=== PATIENT | female | born 1995 | race Caucasian/White ===

== ENCOUNTER 2016-11-12 10:02 | Emergency (ER) | payer BC, OTHER ==
[~2016-11-12] VITALS: Ht 157.5 cm; Wt 53.0 kg
[2016-11-12 10:04] VITALS: TEMP 36.4; Ht 157.5 cm; Wt 53.0 kg
[2016-11-12] MEDS ORDERED: LORAZEPAM 1 MG TAB SL STA (10:27)
[2016-11-12] MEDS ORDERED: AMOX250C3 PO (10:57)
[2016-11-12] MEDS ORDERED: ATIVAN 1MG HOMEPACK PO ONE (12:30)
[2016-11-12 12:40] VITALS: BP 136/81; PULSE 94; O2SAT 100
--- NOTE | 2016-11-12 15:50 | EMERGENCY ROOM VISIT NOTE ---
History Report prepared by Samia: Delicia Ricardo Under the Supervision of: Dr. Krishan Garcia M.D. 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 The patient is a student at [employer] and had one final this morning. She does not think that final went very well. The patient experienced a panic attack when she was driving home after the exam. She felt like she was going to experience syncope so she pulled the car over and walked to a friend's house that was near the area. She states that she has one more final tomorrow morning. She states that she is experiencing some nausea and abdominal pain, but she thinks the pain is secondary to gas which is normal for her when she is stressed. She also states that she hasn't been eating or drinking much water recently, but she has been drinking coffee. She states that she has not been sleeping much either due to studying. The patient adds that her calf was sore for no apparent reason yesterday and the patient's friend adds that the patient's right arm was twitching last night also. Pt denies LOC, headache, fevers, chills, diaphoresis , visual changes, neck pain, chest pain, breathing difficulties, vomiting, back pain, melena, hematochezia, urinary symptoms, numbness, weakness, lymphadenopathy, rash, or other complaints.The patient has experienced similar symptoms in the past, but never this severe. The patient states that she is on Vyvanse and Adderall, but otherwise has no regular medications. She states that she was previously on a higher dose of Vyvanse, but she started to experience palpitations so the dose was lowered. The patient states that she has never been hospitalized for similar symptoms in the past. She adds that she experienced mood issues and depression when she was in middle school. She was on Trileptal from middle school until her dwayne or senior but currently she is not on anything for mood issues or depression. The patient denies any suicidal or homicidal ideation. Additionally, the patient was diagnosed with strep throat at the beginning of the week and started on amoxicillin. Source of History: patient, friend Onset: CLAY ARTIST Position: other (global) Quality: other (anxiety) Timing: worsening Associated Symptoms: + abdominal pain, + nausea Note: near syncope, calf soreness, right arm twitching Review of Systems See HPI for pertinent positives and negatives. A total of ten systems were reviewed and were otherwise negative. Past Medical & Surgical Medical Problems: (1) ADHD (attention deficit hyperactivity disorder) Family History No pertinent family history Social History Smoking Status: Current Every Day Smoker Alcohol Use: occasionally Housing Status: lives with roommate Occupation Status: [email or web address] student Current/Historical Medications Scheduled Amoxicillin (Amoxil), 250 MG PO BID Amphetamine-Dextroamphetamine 10MG (Adderall 10MG), 10 MG PO DAILY Control Pills ( Control Pills), 1 TAB PO DAILY Lisdexamfetamine Dimesylate (Vyvanse), 30 MG PO DAILY Allergies Coded Allergies: No Known Allergies (Unverified , 11/12/16) Physical Exam Vital Signs Date Time Temp Pulse Resp B/P Pulse Ox O2 Delivery O2 Flow Rate FiO2 11/12/16 12:40 94 18 136/81 100 11/12/16 10:04 36.4 130 18 144/87 99 Room Air Physical Exam GENERAL: Awake, alert, very anxious appearing, no distress HENT: Normocephalic, atraumatic. TM's normal. Oropharynx unremarkable. EYES: PERRL. EOMI. Normal conjunctiva. Sclera non-icteric. NECK: Supple. No nuchal rigidity. FROM. No JVD or bruit. RESPIRATORY: CTA CARDIAC: RRR. No murmur. ABDOMEN: Soft, non distended. No tenderness to palpation. No rebound or guarding. No masses. MUSCULOSKELETAL: Unremarkable. No edema. No discoloration. Gross motor strength symmetric. NEURO: Cranial nerves 2-12 grossly intact. Normal sensorium. No sensory or motor deficits noted. Speech normal. No pronator drift. SKIN: No rash or jaundice noted. LYMPH: No adenopathy. PSYCH: Very anxious mood. No suicidal ideation. No homicidal ideation. Medical Decision & Procedures Medications Administered Medications (Trade) Dose Ordered Sig/Parminder Route Start Time Stop Time Status Last Admin Dose Admin Lorazepam (Ativan Tab) 1 mg NOW STAT SL 11/12/16 10:27 11/12/16 10:28 DC 11/12/16 10:35 1 MG Lorazepam (Ativan 1MG Home Pack) 1 homepack UD ONCE PO 11/12/16 12:30 11/12/16 12:31 DC 11/12/16 12:41 1 [facility] ED Course 1025: The patient was evaluated in room A7. A complete history and physical exam was performed. 1027: Ordered Ativan Tab 1 mg SL 1111: I reassessed the patient and she is feeling much better. 1215: I reevaluated the patient. She is still doing well. Discussed results and discharge instructions: she verbalized understanding and agreement. The patient is ready for discharge. 1230: Ordered Lorazepam 1 weirsdalepa PO Medical Decision Triage Nursing notes reviewed and agree them. The patient's history was concerning for possible psychiatric disturbance. Differential diagnosis: Etiologies such as adjustment disorder, mood disorder, infection, hypoglycemia, electrolyte abnormalities, cardiac sources, intracerebral event, toxicologic, neurologic, as well as others were entertained. Physical examination: The physical examination was performed as above and was completely benign except for significant anxiety. No emergent medical pathologies were noted. ER treatment provided: Ativan 1 mg On reassessment the patient felt much better. Diagnostic interpretation by me: No diagnostic studies were performed based upon the history and physical examination. The patient presented with acute panic attack after taking her examination. No emergent medical findings were noted on history or physical examination. She was treated with Ativan and felt significantly better. She was apprehensive that the panic attack may recur and I did offer a home pack of Ativan. No prescription was written. The patient plans on going home within the next 48 hours. She will contact her professor regarding her exam tomorrow. The patient has an appointment next week with her outpatient provider Yonis Cline. If she worsens in any way she will come back to the emergency department. The patient felt very comfortable with the plan and was in good condition. By the evaluation outlined above emergent etiologies such as infection, hypoglycemia, electrolyte abnormalities, cardiac sources, intracerebral event, toxicologic, neurologic,as well as others were deemed relatively unlikely. It appears the patient is dealing with a psychiatric disturbance. The patient was informed about the findings as listed above. All questions were answered and she was pleased with the treatment. Return instructions were outlined and the patient was discharged in stable condition. Outpatient prescription management: Ativan home pack The chart was completed utilizing [employer] voice recognition software. Grammatical errors, random word insertions, pronoun errors, and incomplete sentences are an occasional consequence of this system due to software limitations, ambient noise, and hardware issues. Any formal questions or concerns about the content, text, or information contained within the body of this dictation should be directly addressed to the physician for clarification. Impression Primary Impression: Panic attack Scribe Attestation The scribe's documentation has been prepared under my direction and personally reviewed by me in its entirety. I confirm that the note above accurately reflects all work, treatment, procedures, and medical decision making performed by me. Departure Information Dispostion Home / Self-Care Referrals [facility] (PCP) Forms HOME CARE DOCUMENTATION FORM, IMPORTANT VISIT INFORMATION Patient Instructions My [facility] Additional Instructions PSYCHIATRIC INSTRUCTIONS: Ativan 1 mg: Take one 3 times daily as needed for severe anxiety. Do not drive if taking. May cause drowsiness. Do not take if you are at work or doing any activity where being under the influence may be dangerous. Contact your professor today to discuss your exam tomorrow. Continue your current medications. Return to the ER for severe anxiety or depression, thoughts of hurting yourself or others, inability to function, hallucinations, worsening of your condition, or as needed. Follow up with your provider when you return home as discussed.
== END 2016-11-12 12:40 | disposition home or self-care (01) ==
LOC: C.EDB 10:04 → C.EDA 12:40
DX: F41.0 Panic disorder [episodic paroxysmal anxiety] (principal); F90.9 Attention-deficit hyperactivity disorder, unspecified type; F17.200 Nicotine dependence, unspecified, uncomplicated; Z79.899 Other long term (current) drug therapy

== ENCOUNTER 2017-05-12 02:45 | Emergency (ER) | payer BC ==
[~2017-05-12] VITALS: Ht 157.5 cm; Wt 54.9 kg
[~2017-05-12 02:45] MED LIST: AMOX250C3 PO
[2017-05-12 02:48] VITALS: TEMP 36.7; Ht 157.5 cm; Wt 54.9 kg
[2017-05-12] MEDS ORDERED: LIDOCAINE/EPINEPH/TETRACAINE 1 EA SYR EXT STA (03:01)
[2017-05-12] MEDS ORDERED: ACETAMINOPHEN 500 MG TAB PO STA (03:01)
--- NOTE | 2017-05-12 04:04 | EMERGENCY ROOM VISIT NOTE ---
History First contact with patient: 02:56 Chief Complaint: LACERATION/CUT (SUT/DERMABOND) Stated Complaint: BLEEDING FROM LAC ON FACE Nursing Triage Summary: Pt reports she tripped and hit her chin on her bed. Pt has laceration to chin. Denies any LOC. History of Present Illness The patient is a 22 year old female who presents to the Emergency Room with complaints of chin laceration with head injury who tripped over her bed striking her chin. Patient states she's been drinking alcohol. She does not feel overly intoxicated. She describes the pain as throbbing, ranging in severity 6 out of 10 that is worse with palpation and better with rest. Tetanus is current. Patient denies loss of conscious, dental pain, vision problems, neck pain, chest pain, dyspnea, abdominal pain, numbness, tingling, weakness or any other medical complaints. Review of Systems See HPI for pertinent positives & negatives. A total of 10 systems reviewed and were otherwise negative. Past Medical/Surgical History Medical Problems: (1) ADHD (attention deficit hyperactivity disorder) Family History No pertinent family history Social History Smoking Status: Never Smoker Alcohol Use: occasionally Drug Use: none Housing Status: lives with roommate Occupation Status: [employer] student Current/Historical Medications Scheduled Amoxicillin (Amoxil), 250 MG PO BID Amphetamine-Dextroamphetamine 10MG (Adderall 10MG), 10 MG PO DAILY Control Pills ( Control Pills), 1 TAB PO DAILY Lisdexamfetamine Dimesylate (Vyvanse), 30 MG PO DAILY Physical Exam Vital Signs Date Time Temp Pulse Resp B/P (MAP) Pulse Ox O2 Delivery O2 Flow Rate FiO2 05/12/17 02:48 36.7 92 20 147/95 100 Room Air Physical Exam PHYSICAL EXAM: VITALS: Vitals are noted on the nurse's note and reviewed by myself. Vital signs stable. GENERAL: Pleasant female with EtOH odor, in no acute distress, nondiaphoretic, well-developed well-nourished. SKIN: 3 cm right chin laceration with small abrasions around it that is gaping and appears clean The~ skin was without obvious lacerations or abrasions. Capillary reflex less than 2 seconds. HEAD: Normocephalic atraumatic. EARS: External auditory canals clear, tympanic membranes pearly asher without erythema or effusion bilaterally. No hemotympanums. No biswas sign. No mastoid tenderness. EYES: Pupils equal round and reactive to light and accommodation. Conjunctivae without injection, sclerae without icterus. Extraocular movements intact. NOSE: Patent, turbinates without inflammation or discharge. No sinus tenderness. No septal hematoma or bleeding. FACE: Right lateral jaw line facial bone tenderness. Full range of motion of the jaw right-sided tenderness. MOUTH: Mucous membranes moist. Pharynx without erythema or exudate. Uvula midline. Airway patent. Tongue does not deviate. NECK: Supple without nuchal rigidity. Cervical spine is nontender. Full range of motion of the neck without tenderness. No JVD. HEART: Regular rate and rhythm without murmurs gallops or rubs. LUNGS: Clear to auscultation bilaterally without wheezes, rales or rhonchi. No dullness to percussion. No retractions or accessory muscle use. No chest wall tenderness. ABDOMEN: Positive bowel sounds x 4. Normal tympanic percussion. Soft, nontender, without masses or organomegaly. No guarding or rebound tenderness. MUSCULOSKELETAL: No tenderness of the thoracic or lumbar spine. NEURO: Patient was alert and oriented to person place and time. Normal sensation to light and sharp touch. No focal neurological deficits. Medical Decision & Procedures Medications Administered Medications (Trade) Dose Ordered Sig/Parminder Route Start Time Stop Time Status Last Admin Dose Admin Tetracaine/ Epinephrine/ Lidocaine (L.e.t. Gel 4%/ 1:100/0.5%) 1 ea NOW STAT EXT 05/12/17 03:01 05/12/17 03:03 DC 05/12/17 03:08 1 EA Acetaminophen (Tylenol Tab) 1,000 mg NOW STAT PO 05/12/17 03:01 05/12/17 03:03 DC 05/12/17 03:08 1,000 MG Procedure Location: chin Total length: 3cm Complexity: simple Verbal consent was obtained after the risks and benefits were explained, including but not limited to bleeding, scarring, infection, pain, and bone/joint /nerve damage. At this time, the risks of the procedure are less than the risks of NOT performing the procedure. A time out was taken and the correct patient and site identified. The skin was prepped with betadine. The target area was anesthetized with LET. Copious irrigation was performed using NSS. The skin was re-prepped with betadine and a sterile field set. The wound was explored for foreign bodies and none found. Examination revealed no injury to deep structures such as tendons, bone, or significant blood vessels. Debridement was not performed. The wound edges were approximated using 5, 6-0 simple interrupted nylon sutures. Hemostasis and excellent approximation was achieved. Antibacterial ointment and a sterile dressing applied. Detailed wound care instructions and signs and symptoms of infection reviewed with the pt. No complications and the patient tolerated the procedure well. ED Course Prior records/ancillary studies reviewed. Triage Nursing notes reviewed. Additional history obtained from friend The patient's history was concerning for traumatic head injury Differential diagnosis: Etiologies such as concussion, contusion, fracture, subdural hematoma, epidural hematoma, intraparenchymal hemorrhage, as well as other traumatic pathologies were entertained. Physical examination findings: As above. ER treatment provided: P.o. Tylenol On reassessment the patient felt better. Diagnostics interpreted by me: Imaging studies: Head and facial CT negative for bleed or fracture per stat radiology It appears the patient has a head injury and is intoxicated so imaging was ordered. Patient had unremarkable workup as above. She was counseled on head injury signs and symptoms and laceration care. She is advised follow-up with health services in a few days or here in the ER sooner for headache, fevers, confusion, signs of infection, worsening signs or symptoms or as needed. Patient ambulated out of the ER without difficulties. By the evaluation outlined above emergent etiologies such as fracture, subdural hematoma, epidural hematoma, intraparenchymal hemorrhage, as well as others were deemed relatively unlikely. The pt informed about the findings as listed above. All questions were answered and pleased with the treatment. Return instructions were outlined and the patient was discharged in stable condition. Referral: The patient was referred back to their primary care physician/S for follow-up in 2 to 3 days for a recheck of the current condition. Medical Decision as above Head Trauma GCS Score: 15 Medication Reconcilliation Current Medication List: was personally reviewed by me Blood Pressure Screening Patient's blood pressure: Normal blood pressure Impression Primary Impression: Head injury Additional Impressions: Chin laceration Chin abrasion, non-infected Departure Information Dispostion Home / Self-Care Condition GOOD Referrals No Doctor, Assigned (PCP) Patient Instructions My [facility] Additional Instructions Read head injury handout and return for any symptoms. Tylenol 1000 mg as needed for pain (Maximum 3000 mg Tylenol in 24 hr period). Avoid alcohol and contact sports/activities for one week and follow up with family doctor prior to returning to these activities if still symptomatic. Ice and elevate head. If your symptoms persist more than a week then follow up with the concussion clinic. Call [phone]. Return to ER sooner for headache, fevers, confusion, worsening signs or symptoms or as needed. Antibiotic ointment and bandage to the areas until healed. Follow up with family doctor or return for any signs of infection (increasing redness, swelling , drainage, or fever). Keep covered when in sun until fully healed then SPF 50 or higher until scar healed. Laceration care: Keep wound clean and dry. Do not allow any crusting or dried blood to accumulate on sutures. If this occurs, use a 1:1 solution of hydrogen peroxide/ water on a Q-tip to clean the wound. Use an antibiotic ointment for 3-4 days, then let wound dry. Suture removal in 5-7 days. Return sooner for any signs of infection (increasing redness, swelling, drainage). Ice and elevate for swelling and pain. Keep covered when in sun until sutures removed then SPF 50 or higher for one year. Vitamin E oil if desired two weeks after suture removal for reduction of scar. Return to ER sooner for headache, fevers, confusion, signs of infection, worsening signs or symptoms or as needed. Problem Qualifiers Primary Impression: Head injury Encounter type: initial encounter Qualified Codes: S09.90XA - Unspecified injury of head, initial encounter
[2017-05-12 04:23] VITALS: BP 128/82; PULSE 88; O2SAT 99
--- NOTE | 2017-05-12 06:28 | DIAGNOSTIC IMAGING REPORT ---
CT HEAD WITHOUT CONTRAST (CT) CLINICAL HISTORY: Head pain status post trauma COMPARISON STUDY: No previous studies for comparison. TECHNIQUE: Axial CT of the brain is performed from the vertex to the skull base. IV contrast was not administered for this examination. A dose lowering technique was utilized adhering to the principles of ALARA. CT DOSE: 744.02 mGy.cm FINDINGS: No intra or extra-axial mass lesions are visualized. There is no CT evidence of acute cortical infarction. There is no evidence of midline shift. There is no acute hemorrhage. No calvarial fractures are visualized. There is no evidence of pathologic ventricular dilatation. There is no evidence of acute sinusitis IMPRESSION: Normal noncontrast head CT. Electronically signed by: Huber Salazar M.D. 05/12/2017 6:27 AM Dictated Date/Time: 05/12/2017 6:26 AM
--- NOTE | 2017-05-12 06:57 | DIAGNOSTIC IMAGING REPORT ---
MAXILLOFACIAL CT WITHOUT CONTRAST CLINICAL HISTORY: Fall with chin injury. COMPARISON STUDY: None. TECHNIQUE: A maxillofacial CT was performed without IV contrast. Coronal and sagittal reformats were viewed. A dose lowering technique was utilized adhering to the principles of ALARA. FINDINGS: Note is made of soft tissue gas consistent with a laceration overlying the right anterior body of the mandible. No associated mandibular fracture is present. No radiopaque foreign bodies are identified. Alignment of the temporomandibular joints is anatomic. There is no acute facial fracture. Orbital floors are intact. No fracture is identified within the skull base or visualized portions of the upper cervical spine. IMPRESSION: No acute facial fracture. Soft tissue gas consistent with laceration overlying the anterior aspect of the right hemimandible. Electronically signed by: Maximo Dumont M.D. 05/12/2017 6:55 AM Dictated Date/Time: 05/12/2017 6:51 AM
[2017-05-12] MEDS ORDERED: AMPH10TA2 PO (10:57)
[2017-05-12] MEDS ORDERED: LISD30CA4 PO (10:57)
[2017-05-12] MEDS ORDERED: BCPILLS PO (10:57)
[2017-05-12] MEDS ORDERED: AMOX500C3 PO (17:06)
== END 2017-05-12 04:23 | disposition home or self-care (01) ==
LOC: C.EDB 02:46
DX: S01.81XA Laceration without foreign body of other part of head, initial encounter (principal); S09.90XA Unspecified injury of head, initial encounter; W01.0XXA Fall on same level from slipping, tripping and stumbling without subsequent striking against object, initial encounter; Y92.013 Bedroom of single-family (private) house as the place of occurrence of the external cause; F90.9 Attention-deficit hyperactivity disorder, unspecified type; Z79.3 Long term (current) use of hormonal contraceptives; Z79.899 Other long term (current) drug therapy

== ENCOUNTER 2017-05-12 16:27 | Emergency (ER) | payer BC ==
[~2017-05-12] VITALS: Ht 157.5 cm; Wt 53.4 kg
[~2017-05-12 16:27] MED LIST changes: +AMPH10TA2 PO; +BCPILLS PO; +LISD30CA4 PO
[2017-05-12 16:36] VITALS: Ht 157.5 cm; Wt 53.4 kg
[2017-05-12] MEDS ORDERED: AMOX500C3 PO (17:06)
--- NOTE | 2017-05-12 17:07 | EMERGENCY ROOM VISIT NOTE ---
ED Visit Note First contact with patient: 16:44 CHIEF COMPLAINT: Mouth laceration greater than 12 hours ago HISTORY OF PRESENT ILLNESS: Patient is a 22-year-old white female who returns to the emergency department for evaluation of a laceration to the inner aspect of her right bottom lip. Patient was seen and evaluated here earlier today. She was here between around [id number]. She admits that she was drinking alcohol , tripped and fell, striking the right side of her chin on her bed frame, causing a small right-sided chin laceration. She was seen here, and had a negative head CT. Wound was repaired. Patient states that she noted some increasing swelling along the right jawline today, and had pain in her mouth when she was chewing and talking. When she looked in the mirror she noticed a small laceration on the inner aspect of her mouth, thus prompting her to return to the emergency department for evaluation. She noted some slightly late discharge from the area this morning. She rinsed the area with hydrogen peroxide. She has some soreness in her teeth, but no loose or fractured teeth. She denies any other complaints. REVIEW OF SYSTEMS: Review of systems as per HPI. All other systems reviewed were negative. At least 6 systems reviewed. PMH: Electronic medical records are reviewed and summarized as above/below. See Problem List. SOCIAL HISTORY: Patient is a college student who lives locally. Nonsmoker. PHYSICAL EXAM: Vital Signs: Reviewed Nurse's notes. CONSTITUTIONAL: Patient is a pleasant, well-appearing 22-year-old female who is awake and alert and in no acute distress. INTEGUMENTARY: There is roughly 1 cm right chin laceration that is intact with sutures. She has slight swelling around the site of the laceration, minimal tenderness. No increased redness, warmth or induration. MOUTH: Examination of the inner aspect of the patient's mouth, show a small, 0.5 cm laceration along the buccal mucosa just in front of the right lower canine. There is no active bleeding. No foreign body noted. EMERGENCY DEPARTMENT COURSE: The patient was seen and assessed as above. She was reassured. The possibility of the laceration being through and through was discussed with her. Certainly delayed primary closure was not advised, and she was reassured that the wound would heal on its own. Wound care measures were discussed. She was provided a prescription for amoxicillin should she began to notice any signs of infection, at this time however the wound appears fine. Chin laceration is well approximated. She was encouraged to return to the emergency department for any the other concerns. Medication reconciliation: I attest that I have personally reviewed the patient' s current medication list. Blood pressure screening : Patient was found to have normal blood pressure on screening and does not require follow-up. Problem List Medical Problems: (1) ADHD (attention deficit hyperactivity disorder) Status: Chronic (2) Alcoholic intoxication Status: Resolved (3) Chin abrasion, non-infected Status: Resolved (4) Chin laceration Status: Resolved (5) Head injury Status: Resolved (6) Panic attack Status: Resolved Current/Historical Medications Scheduled Amoxicillin (Amoxil), 500 MG PO TID Control Pills ( Control Pills), 1 TAB PO DAILY Lisdexamfetamine Dimesylate (Vyvanse), 30 MG PO DAILY Scheduled PRN Amphetamine-Dextroamphetamine 10MG (Adderall 10MG), 10 MG PO DAILY PRN for concentration Allergies Coded Allergies: No Known Allergies (Unverified , 11/12/16) Vital Signs Date Time Temp Pulse Resp B/P (MAP) Pulse Ox O2 Delivery O2 Flow Rate FiO2 05/12/17 17:19 37.4 99 20 121/74 100 05/12/17 17:16 99 20 121/74 100 Room Air 05/12/17 16:36 37.4 102 20 127/88 100 Room Air Departure Information Impression Primary Impression: Laceration of oral cavity Prescriptions Amoxicillin (AMOXIL) 500 Mg Cap 500 MG PO TID, #21 CAP Prov: Tamika Garcia PA 05/12/17 Referrals No Doctor, Assigned (PCP) Patient Instructions My [facility] Additional Instructions The wound will heal on its own over the next 10-14 days. Avoid overstretching the mouth. Cut food into small pieces and eat with a utensil. Avoid, sticky or crumbly foods that could get stuck in the wound. Salty, spicy or acidic foods many irritate the wound. Rinse mouth with saltwater after all meals and before bedtime. Be gentle when brushing the teeth. Follow-up with your dentist if needed. If you begin to notice any signs of infection including increasing redness, warmth, swelling, pus like drainage, fill and take the prescription for amoxicillin, and have the wound reevaluated within 24-48 hours
[2017-05-12 17:19] VITALS: BP 121/74; PULSE 99; TEMP 37.4; O2SAT 100
== END 2017-05-12 17:21 | disposition home or self-care (01) ==
LOC: C.EDB 16:29 → C.EDD 17:21
DX: S01.512A Laceration without foreign body of oral cavity, initial encounter (principal); W19.XXXA Unspecified fall, initial encounter; F90.9 Attention-deficit hyperactivity disorder, unspecified type

== ENCOUNTER 2017-10-20 22:25 | Emergency (ER) | payer BC ==
[~2017-10-20] VITALS: Ht 157.5 cm; Wt 55.5 kg
[~2017-10-20 22:25] MED LIST changes: -AMOX250C3 PO
[2017-10-20 22:32] VITALS: Ht 157.5 cm; Wt 55.5 kg
[2017-10-20] MEDS ORDERED: ONDANSETRON INJ 2 MG/ML 2 ML VIAL IV STA (22:40)
[2017-10-20] MEDS ORDERED: SODIUM CHLORIDE 0.9% 1000ML 2,000 ML IV STA (22:40)
[2017-10-20] MEDS ORDERED: DICYCLOMINE HCL 10 MG/ML 2 ML AMP IM ONE (22:45)
[2017-10-20] MEDS ORDERED: SERT25TA PO (23:09)
[2017-10-20 23:17] LABS: BASO % 0.5 %; BASO ABS # 0.04 K/uL (0-0.2); EOS % 1.4 %; EOS ABS # 0.11 K/uL (0-0.5); HEMATOCRIT 39.6 % (37-47); HEMOGLOBIN 13.4 g/dL (12.0-16.0); IG# 0.02 K/uL (0.00-0.02); LYMPH ABS # 1.26 K/uL (1.2-3.4); MEAN CELL VOLUME 85.5 fL (80-100); MEAN CORPUSCULAR HEMOGLOBIN 28.9 pg (25-34); MEAN CORPUSCULAR HGB CONC 33.8 g/dl (32-36); MEAN PLATELET VOLUME 10.9 fL (7.4-10.4); MONO % 8.5 %; MONO ABS # 0.67 K/uL (0.11-0.59); NEUT % 73.3 %; NEUT ABS # 5.78 K/uL (1.4-6.5); PLATELET COUNT 259 K/uL (130-400); RED CELL DISTRIBUTION WIDTH CV 13.5 % (11.5-14.5); RED CELL DISTRIBUTION WIDTH SD 42.4 fL (36.4-46.3); WHITE BLOOD COUNT 7.88 K/uL (4.8-10.8)
[2017-10-20 23:23] VITALS: O2SAT 99
[2017-10-20 23:34] LABS: ALBUMIN 3.4 gm/dl (3.4-5.0); CALCIUM 8.3 mg/dl (8.5-10.1); CREATININE 0.9 mg/dl (0.60-1.20); POTASSIUM 3.3 mmol/L (3.5-5.1)
[2017-10-20 23:37] LABS: TOTAL PROTEIN 7.9 gm/dl (6.4-8.2)
[2017-10-21] MEDS ORDERED: POTASSIUM CHLORIDE 10 MEQ TABCR PO STA (00:05)
[2017-10-21 01:06] VITALS: BP 115/85; PULSE 74; TEMP 36.7; O2SAT 99
[2017-10-21] MEDS ORDERED: BENTYL HOME PACK 10 MG VIAL PO ONE (01:15)
[2017-10-21] MEDS ORDERED: ONDANSETRON HOME PACK 4MG OD TAB PO ONE (01:15)
--- NOTE | 2017-10-21 01:30 | EMERGENCY ROOM VISIT NOTE ---
History First contact with patient: 22:35 Chief Complaint: ABDOMINAL PAIN Stated Complaint: SEVERE STOMACH PAIN, DISTENDED STOMACH Nursing Triage Summary: abdominal pain 8/10 and sever nausea lasting 3 hrs. pt states she was treated and diagnosed with the flu last week History of Present Illness The patient is a 22 year old female who presents to the Emergency Room with complaints of nausea, vomiting, diarrhea and abdominal bloating for the past day. Patient states she ate sushi that was 2 days old. Patient lives off campus. No one else in the household is sick. Patient denies chest pain, dyspnea, fever, chills, cough, congestion, back pain, urinary symptoms. No blood or black in the emesis or stool. Review of Systems An 10 system review of systems was completed with positives and pertinent negatives listed in the HPI. Past Medical/Surgical History Medical Problems: (1) ADHD (attention deficit hyperactivity disorder) (2) Alcoholic intoxication (3) Chin abrasion, non-infected (4) Chin laceration (5) Head injury (6) Panic attack Family History No pertinent family history Social History Smoking Status: Never Smoker Alcohol Use: occasionally Drug Use: none Housing Status: lives with roommate Occupation Status: [employer] student Current/Historical Medications Scheduled Control Pills ( Control Pills), 1 TAB PO DAILY Lisdexamfetamine Dimesylate (Vyvanse), 30 MG PO DAILY Sertraline (Zoloft), 25 MG PO DAILY Scheduled PRN Amphetamine-Dextroamphetamine 10MG (Adderall 10MG), 10 MG PO DAILY PRN for concentration Physical Exam Vital Signs Date Time Temp Pulse Resp B/P (MAP) Pulse Ox O2 Delivery O2 Flow Rate FiO2 10/21/17 01:06 36.7 74 18 115/85 99 Room Air 10/20/17 23:26 87 18 124/82 99 Room Air 10/20/17 23:23 99 Room Air 10/20/17 23:09 84 10/20/17 22:32 36.6 97 18 125/82 99 Room Air Physical Exam VITALS: Vitals are noted on the nurse's note and reviewed by myself. Vital signs stable. GENERAL: Pleasant female, in no acute distress, nondiaphoretic, well-developed well-nourished. SKIN: The skin was without rashes, erythema, edema, or bruising. There is no tenting of the skin. Capillary reflex less than 2 seconds. HEAD: Normocephalic atraumatic. EARS: External auditory canals clear, tympanic membranes pearly asher without erythema or effusion bilaterally. EYES: Pupils equal round and reactive to light and accommodation. Conjunctivae without injection, sclerae without icterus. Extraocular movements intact. NOSE: Patent, turbinates without inflammation or discharge. MOUTH: Mucous membranes moist. Pharynx without erythema or exudate. Uvula midline. Airway patent. Tongue does not deviate. NECK: Supple without nuchal rigidity. No lymphadenopathy. No thyromegaly. Cervical spine is nontender. No JVD. HEART: Regular rate and rhythm without murmurs gallops or rubs. LUNGS: Clear to auscultation bilaterally without wheezes, rales or rhonchi. No retractions or accessory muscle use. ABDOMEN: Positive bowel sounds x 4. Normal tympanic percussion. Soft, nontender, without masses or organomegaly. Wen sign negative. No guarding or rebound tenderness. No CVA tenderness MUSCULOSKELETAL: No muscle atrophy, erythema, or edema noted. NEURO: Patient was alert and oriented to person place and time. Normal sensation to light and sharp touch. No focal neurological deficits. Medical Decision & Procedures Laboratory Results 10/20/17 23:00 Red Blood Count 4.63, Mean Corpuscular Volume 85.5, Mean Corpuscular Hemoglobin 28.9, Mean Corpuscular Hemoglobin Concent 33.8, Mean Platelet Volume 10.9, Neutrophils (%) (Auto) 73.3, Lymphocytes (%) (Auto) 16.0, Monocytes (%) (Auto) 8.5, Eosinophils (%) (Auto) 1.4, Basophils (%) (Auto) 0.5, Neutrophils # (Auto) 5.78, Lymphocytes # (Auto) 1.26, Monocytes # (Auto) 0.67, Eosinophils # (Auto) 0.11, Basophils # (Auto) 0.04 10/20/17 23:00 Test 10/20/17 23:00 10/20/17 23:36 White Blood Count 7.88 K/uL (4.8-10.8) Red Blood Count 4.63 M/uL (4.2-5.4) Hemoglobin 13.4 g/dL (12.0-16.0) Hematocrit 39.6 % (37-47) Mean Corpuscular Volume 85.5 fL (80-100) Mean Corpuscular Hemoglobin 28.9 pg (25-34) Mean Corpuscular Hemoglobin Concent 33.8 g/dl (32-36) Platelet Count 259 K/uL (130-400) Mean Platelet Volume 10.9 fL (7.4-10.4) Neutrophils (%) (Auto) 73.3 % Lymphocytes (%) (Auto) 16.0 % Monocytes (%) (Auto) 8.5 % Eosinophils (%) (Auto) 1.4 % Basophils (%) (Auto) 0.5 % Neutrophils # (Auto) 5.78 K/uL (1.4-6.5) Lymphocytes # (Auto) 1.26 K/uL (1.2-3.4) Monocytes # (Auto) 0.67 K/uL (0.11-0.59) Eosinophils # (Auto) 0.11 K/uL (0-0.5) Basophils # (Auto) 0.04 K/uL (0-0.2) RDW Standard Deviation 42.4 fL (36.4-46.3) RDW Coefficient of Variation 13.5 % (11.5-14.5) Immature Granulocyte % (Auto) 0.3 % Immature Granulocyte # (Auto) 0.02 K/uL (0.00-0.02) Anion Gap 6.0 mmol/L (3-11) Est Creatinine Clear Calc Drug Dose 78.2 ml/min Estimated GFR () 105.9 Estimated GFR (Non- 91.4 BUN/Creatinine Ratio 9.2 (10-20) Calcium Level 8.3 mg/dl (8.5-10.1) Total Bilirubin 0.4 mg/dl (0.2-1) Direct Bilirubin 0.1 mg/dl (0-0.2) Aspartate Amino Transf (AST/SGOT) 60 U/L (15-37) Alanine Aminotransferase (ALT/SGPT) 51 U/L (12-78) Alkaline Phosphatase 81 U/L (45-117) Total Protein 7.9 gm/dl (6.4-8.2) Albumin 3.4 gm/dl (3.4-5.0) Human Chorionic Gonadotropin, Qual NEG (NEG) Urine Color ORANGE Urine Appearance CLOUDY (CLEAR) Urine pH 6.0 (4.5-7.5) Urine Specific [employer] 1.011 (1.000-1.030) Urine Protein NEG (NEG) Urine Glucose (UA) NEG (NEG) Urine Ketones NEG (NEG) Urine Occult Blood 3+ (NEG) Urine Nitrite NEG (NEG) Urine Bilirubin NEG (NEG) Urine Urobilinogen NEG (NEG) Urine Leukocyte Esterase TRACE (NEG) Urine WBC (Auto) 1-5 /hpf (0-5) Urine RBC (Auto) >30 /hpf (0-4) Urine Hyaline Casts (Auto) 1-5 /lpf (0-5) Urine Epithelial Cells (Auto) >30 /lpf (0-5) Urine Bacteria (Auto) NEG (NEG) Date/Time Source Procedure Growth Status 10/20/17 23:31 Stool C.difficile Toxin B Gene (PCR) - Final No C. difficile toxin B gene detected Complete Medications Administered Medications (Trade) Dose Ordered Sig/Parminder Route Start Time Stop Time Status Last Admin Dose Admin Sodium Chloride 2,000 ml @ 999 mls/hr Q2H1M STAT IV 10/20/17 22:40 10/21/17 00:40 DC 10/20/17 23:01 999 MLS/HR Ondansetron HCl (Zofran Inj) 4 mg NOW STAT IV 10/20/17 22:40 10/20/17 22:42 DC 10/20/17 23:01 4 MG Dicyclomine HCl (Bentyl Inj) 20 mg NOW ONCE IM 10/20/17 22:45 10/20/17 22:46 DC 10/20/17 23:01 20 MG Potassium Chloride (Klor-Con M10) 20 meq NOW STAT PO 10/21/17 00:05 10/21/17 00:06 DC 10/21/17 00:15 20 MEQ ED Course Prior records/ancillary studies reviewed. Triage Nursing notes reviewed. The patient's history was concerning for nausea, vomiting, diarrhea, and abdominal pain. Differential diagnosis: Etiologies such as gastroenteritis, food borne illness, infections, appendicitis , diverticulitis, inflammatory bowel disease, obstruction, GI bleed, biliary pathology, as well as others were entertained. Physical examination findings: As above. Abdominal examination revealed no tenderness. Vital signs reviewed and revealed stable. ER treatment provided: IV hydration 1 L NSS. Zofran, Bentyl, crackers, Gatorade On reassessment the patient felt better. Patient was tolerating p.o. intake. Diagnostics interpretation by me: The labs revealed no worrisome leukocytosis. Negative C. difficile. Stool culture pending This appears to be consistent with vomiting and diarrhea most likely viral in etiology. Patient was well-appearing. She did not have acute abdomen on exam. She is tolerating fluids. She was eating without difficulties. She is advised to rest, stay well hydrated, do clear liquid diet today and then progress to bland diet tomorrow. She is advised to follow-up health services in a day or 2 or here in the ER sooner for abdominal pain, fevers, vomiting, worsening signs or symptoms or as needed. Patient was here for over 2 hours with no vomiting.. By the evaluation outlined above emergent etiologies such as appendicitis, diverticulitis, obstruction, cardiac sources, mesenteric ischemia , aortic pathology, inflammatory bowel disease, renal colic, PUD, biliary pathology, UTI, as well as others were deemed relatively unlikely. The pt informed about the findings as listed above. All questions were answered and pleased with the treatment. Return instructions were outlined and the patient was discharged in stable condition. Outpatient prescription management: Kyaw Staley Referral: The patient was referred to their primary care physician/S for follow-up in 2 to 3 days for a recheck of the current condition. Case reviewed with my attending The chart was completed utilizing [employer] Speech voice recognition software. Grammatical errors, random word insertions, pronoun errors, and incomplete sentences are an occassional consequence of this system due to software limitations, ambient noise, and hardware issues. Any formal questions or concerns about the content, text, or information contained within the body of this dictation should be directly addressed to the physician assistant auto center manager for clarification. Medical Decision As above Medication Reconcilliation Current Medication List: was personally reviewed by me Blood Pressure Screening Patient's blood pressure: Normal blood pressure Impression Primary Impression: Nausea vomiting and diarrhea Additional Impression: Hypokalemia Departure Information Dispostion Home / Self-Care Condition GOOD Forms HOME CARE DOCUMENTATION FORM, School Instructions, Return To School: 2 days IMPORTANT VISIT INFORMATION Patient Instructions Vomit Diarrhea Self Care, My [facility] Additional Instructions DO NOT drive, drink alcohol, operate machinery, or perform dangerous activities today. You were given medications in the ER that can affect your ability to safely function or operate a vehicle. Bentyl tablets 10mg: Take one every six hours as needed for abdominal cramping and bloating. Avoid alcohol, operating machinery or dangerous equipment, working on ladders or roofs, DRIVING, or situations where being under the influence may be dangerous. Zofran(odansetron) tablets 4mg: Take one and allow it to dissolve in your mouth every four to six hours as needed for nausea or vomiting. Rest and drink plenty of fluids as tolerated. Slow sips of water or sports drinks are recommended instead of large amounts all at once. Continue current medications. Once your stomach is settled start with a clear liquid diet (jello, soup broth, etc.) and then advance as tolerated. You should avoid full, heavy meals for about 24 hrs from the time your symptoms resolved. Return to the ER for persistent vomiting, fevers, abdominal pain, chest pains, difficulty breathing, black or bloody stools, worsening of your condition, or as needed. Follow up with your primary physician/health services in 2-3 days for a recheck of your current condition. School Instructions Return To School: 2 days Problem Qualifiers
== END 2017-10-21 01:24 | disposition home or self-care (01) ==
LOC: C.EDB 22:27 → C.EDC 10-21 01:24
DX: R11.2 Nausea with vomiting, unspecified (principal); R19.7 Diarrhea, unspecified; E87.6 Hypokalemia; F90.9 Attention-deficit hyperactivity disorder, unspecified type